=== PATIENT | male | born 1975 | race Two or more races ===

== ENCOUNTER 2019-04-12 18:46 | Emergency (ER) | payer OTHER ==
[~2019-04-12] VITALS: Ht 170.2 cm; Wt 101.0 kg
[2019-04-12 19:36] LABS: BASOPHILS # (AUTO) 0.02 x10^3/uL (0-0.1); BASOPHILS % (AUTO) 0 % (0-1); EOSINOPHILS # (AUTO) 0.07 x10^3/uL (0-0.4); EOSINOPHILS % (AUTO) 1 % (1-7); LYMPHOCYTES # (AUTO) 1.73 x10^3/uL (1-3.4); LYMPHOCYTES % (AUTO) 24 % (22-44); MD NO; MEAN CORPUSCULAR HEMOGLOBIN 28.6 pg (27.5-34.5); MEAN CORPUSCULAR HGB CONC 33.9 g/dL (33.2-36.2); MEAN CORPUSCULAR VOLUME 84.4 fL (81-97); MEAN PLATELET VOLUME 8.5 fL (7.4-10.4); MONOCYTES # (AUTO) 0.51 x10^3/uL (0.2-0.8); MONOCYTES % (AUTO) 7 % (2-9); NEUTROPHILS # (AUTO) 4.79 x10^3/uL (1.8-6.8); NEUTROPHILS % (AUTO) 67 % (42-75); PLATELET COUNT 261 x10^3/uL (130-400); RED BLOOD COUNT 5.57 x10^6/uL (4.38-5.82); RED CELL DISTRIBUTION WIDTH 12.8 % (9.4-14.8)
[2019-04-12 19:44] LABS: ANION GAP 7 mmol/L (5-15); CALCIUM 9.5 mg/dL (8.5-10.1); CHLORIDE 102 mmol/L (98-107); CREATININE 0.84 mg/dL (0.7-1.3)
--- NOTE | 2019-04-12 20:05 | NUR ---
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 STEADY GAIT. NO DISTRESS NOTED AT THIS TIME.
[2019-04-12] MEDS ORDERED: ACETAMINOPHEN 500 MG TABLET PO ONE (20:30)
[2019-04-12] MEDS ORDERED: ACETAMINOPHEN 500 MG TABLET ONE (20:31)
--- NOTE | 2019-04-12 21:00 | NUR ---
PT RESTING ON GURNEY, FAMILY AT BEDSIDE. PT WATCHING TV FOR DISTRACTION. PT MEDICATED FOR BP AND HEADACHE. WILL CONT TO MONITOR.
[2019-04-12 21:19] VITALS: BP 165/99
== END 2019-04-12 21:29 | disposition home or self-care (01) ==
LOC: ED 21:23
DX: R51 Headache (principal); I10 Essential (primary) hypertension
CPT/HCPCS: 36415; 70450; 80048; 85025; 93005; 99285